=== PATIENT | male | born 1995 | race Native Hawaiian/Other Pacific Islander ===

== ENCOUNTER 2024-01-25 11:10 | Emergency (ER) | payer OTHER ==
[2024-01-25 11:26] VITALS: TEMP 98.1
[2024-01-25 12:00] LABS: Absolute Neutrophil Ct (ANC) 3.72 x10^3/uL (1.4-6.9); BASOPHIL % 0.2 % (0.0-0.4); Basophil (Absolute #) 0.01 x10^3/uL (0-0.4); Eosinophil % 0.9 % (0.00-5.0); Eosinophil (Absolute #) 0.05 x10^3/uL (0-0.5); Hematocrit 44.4 % (42-50); Hemoglobin 15.1 g/dL (12.5-18.0); IMMATURE GRAN # 0.02 x10^3u/L (0.00-0.03); IMMATURE GRAN % 0.4 % (0.00-0.4); Lymphocytes % 26.3 % (24.0-44.0); Mean Cell Volume 94.1 fL (78-100); Mean Platelet Volume 10.2 fL (7.5-11.0); Monocyte (Absolute #) 0.41 x10^3/uL (0.0-1.3); Monocytes % 7.2 % (0.0-12.0); Platelet Count 261 x10^3/uL (150-450); Red Blood Count 4.72 x10^6/uL (4.1-5.6); Red Cell Distribution Width 12.1 % (11.5-14.0); White Blood Count 5.7 x10^3/uL (4.0-10.5)
[2024-01-25] MEDS ORDERED: Sodium Chloride 0.9% 1000 ML 0 ML ONE (12:05)
[2024-01-25] MEDS ORDERED: ANTIVERT 25 MG ONE (12:05)
[2024-01-25 12:06] LABS: ALBUMIN 4.5 g/dL (3.5-5.0); ALKALINE PHOSPHATASE 75 U/L (38-126); ANION GAP 13.4 MEQ/L (5-15); BLOOD UREA NITROGEN 14 mg/dL (9-20); CHLORIDE 103 mmol/L (98-107); Calcium 9.7 mg/dL (8.4-10.2); Carbon Dioxide 24 mmol/L (22-30); Creatinine 1 0.95 mg/dL (0.66-1.25); EST GLOMERULAR FILTRATION RATE 110.4 ML/MIN; ETHYL ALCOHOL < 10 mg/dL (0-10); Glucose 111 mg/dL (74-106); MAGNESIUM 1.9 mg/dL (1.6-2.3); Potassium 3.9 mmol/L (3.5-5.1); SGOT/AST 35 U/L (17-59); SGPT/ALT 51 U/L (0-50); SODIUM 137 mmol/L (135-145); Total Protein 8.6 g/dL (6.3-8.2)
[2024-01-25] MEDS: ANTIVERT 25 MG PO ONE (12:06)
[2024-01-25 12:07] LABS: Appearance Clear (Clear); Bilirubin Negative (Negative); Blood Negative (Negative); Glucose, Urine Negative (Negative); Ketones Negative (Negative); Leukocyte Esterase Negative (Negative); Nitrite Negative (Negative); Protein,Urine Dip Negative (Negative); Specific Gravity 1.015 (1.005-1.030); Urobilinogen 0.2 mg/dL (0.2)
[2024-01-25 12:15] LABS: Bacteria None Seen /HPF (None Seen); Epithelial Cells None Seen /HPF (None Seen); Hyaline Casts NONE SEEN /LPF (0-2); RBC 0-2 /HPF (0-5); WBC 0-2 /HPF (0-5)
[2024-01-25 12:16] LABS: ADD URINE CULTURE? NO (NO)
[2024-01-25] MEDS: Sodium Chloride 0.9% 1000 ML 1,000 ML IV STA (12:16)
--- NOTE | 2024-01-25 12:20 | XRAY ---
Indication: Dizziness. Comparison: September 13, 2022 Portable chest again demonstrates normal heart, lungs, and bony thorax.
--- NOTE | 2024-01-25 12:20 | XRAY ---
Indication: Dizziness. Multiple contiguous axial images obtained through the head without contrast. Comparison: None Normal appearing brain parenchyma, ventricles, and bony calvarium. Partially visualized 2 cm right maxillary sinus polyp/retention cyst. Remaining visualized paranasal sinuses and mastoid air cells clear. Impression: Partially visualized right maxillary sinus polyp/retention cyst. Remaining CT head without contrast exam is normal.
[2024-01-25 12:23] LABS: Amphetamine,Urine NEGATIVE (NEGATIVE); Barbiturate,Urine NEGATIVE (NEGATIVE); Benzodiazepine,Urine NEGATIVE (NEGATIVE); Cocaine,Urine NEGATIVE (NEGATIVE); Methadone,Urine NEGATIVE (NEGATIVE); Opiate,Urine NEGATIVE (NEGATIVE); PCP,Urine NEGATIVE (NEGATIVE); THC,Urine NEGATIVE (NEGATIVE)
[2024-01-25 13:06] VITALS: BP 119/89; PULSE 52; RESP 19; O2SAT 100
--- NOTE | 2024-01-25 13:24 | ERPHSYRPT ---
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 Patient reports he was driving earlier and started feeling everything was spinning, lasted for few minutes and improved. He had 2 more episodes again and does feel as if he is going to pass out. Denies any palpitations or pounding of heart. Patient denies any focal numbness tingling or weakness. He does report feeling off today. Denies any visual disturbance or difficulty speech. Patient reports his symptoms are better but not completely resolved. Feels fatigued and tired. Denies associated nausea or vomiting. Allergies/Adverse Reactions: No Known Drug Allergies Allergy (Unverified 01/25/24 11:18) Home Medications: No Reportable Medications [No Reported Medications] 01/25/24 [History] Hx Tetanus, Diphtheria Vaccination/Date Given: Yes Hx Influenza Vaccination/Date Given: Yes Hx Pneumococcal Vaccination/Date Given: No Immunizations Up to Date: No Travel Risk - International Travel Have you traveled outside of the country in past 3 weeks: No - Emerging Infectious Disease Are you exhibiting symptoms associated with any current EIDs: No - Review of Systems Constitutional: Fatigue Eyes: No Symptoms Ears, Nose, & Throat: No Symptoms Respiratory: No Symptoms Cardiac: No Symptoms Abdominal/Gastrointestinal: No Symptoms Genitourinary Symptoms: No Symptoms Musculoskeletal: No Symptoms Skin: No Symptoms Neurological: Dizziness Psychological: No Symptoms Endocrine: No Symptoms Hematologic/Lymphatic: No Symptoms - Past Medical History Pertinent Past Medical History: No - Past Surgical History Past Surgical History: Yes Gastrointestinal: Appendectomy - Social History Smoking Status: Light tobacco smoker Exposure to second hand smoke: Yes Drug Use: none - Nursing Vital Signs Nursing Vital Signs: Initial Vital Signs Pulse Rate 51 L 01/25/24 11:18 Blood Pressure 143/96 01/25/24 11:18 O2 Sat by Pulse Oximetry 100 01/25/24 11:18 Pain Scale Pain Intensity 0 - Physical Exam General Appearance: no apparent distress, alert Eye Exam: PERRL/EOMI Ears, Nose, Throat Exam: normal ENT inspection Neck Exam: normal inspection, non-tender, supple, full range of motion Respiratory Exam: normal breath sounds, lungs clear Cardiovascular Exam: normal heart sounds, bradycardia Gastrointestinal/Abdomen Exam: soft, normal bowel sounds, No tenderness Extremity Exam: normal inspection, normal range of motion Neurologic Exam: alert, oriented x 3, cooperative, 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, normal mood/affect, nml cerebellar function, nml station & gait, sensation nml, No motor deficits Skin Exam: normal color SpO2 Interpretation: normal SpO2: 100 O2 Delivery: Room Air - Course EKG Interpreted by Me: RATE (49), Sinus Frank, Left Baxter Deviation, NORMAL INTERVALS, Non-specific ST Changes Ordered Tests: Active Orders 24 hr Category Date Time Status AMA [Release AMA] OM.NOW Care 01/25/24 13:26 Completed Machining Technician STAT Care 01/25/24 11:53 Completed EKG-ER Only STAT Care 01/25/24 11:53 Completed Orthostatic Vital Signs STAT Care 01/25/24 11:53 Completed CHEST 1 VIEW (PORTABLE) Stat Exams 01/25/24 11:53 Completed HEAD WITHOUT CONTRAST [CT] Stat Exams 01/25/24 11:53 Completed CBC W DIFF Stat Lab 01/25/24 11:35 Completed CMP Stat Lab 01/25/24 11:35 Completed ETHYL ALCOHOL Stat Lab 01/25/24 11:35 Completed Lactic Acid Stat Lab 01/25/24 11:53 Completed MAGNESIUM Stat Lab 01/25/24 11:35 Completed TROPONIN Q4H Lab 01/25/24 11:35 Completed TROPONIN Q4H Lab 01/25/24 16:00 Ordered TROPONIN Q4H Lab 01/25/24 20:00 Ordered UA W/RFX UR CULTURE Stat Lab 01/25/24 11:56 Completed Urine Triage Profile Stat Lab 01/25/24 11:56 Completed Medication Summary Discontinued Medications Generic Name Dose Route Start Last Admin Trade Name Freq PRN Reason Stop Dose Admin Sodium Chloride 1,000 mls @ 999 mls/hr 01/25/24 11:53 01/25/24 12:16 Sodium Chloride 0.9% 1000 Ml IV 01/25/24 12:53 Not Given .Q1H1M STA Sodium Chloride Confirm 01/25/24 12:05 Sodium Chloride 0.9% 1000 Ml Administered 01/25/24 12:06 Dose 1,000 mls @ ud .ROUTE .[facility] Meclizine HCl 25 mg 01/25/24 11:53 01/25/24 12:06 Meclizine Hcl 25 Mg Tablet PO 01/25/24 11:54 25 mg STAT ONE Administration Meclizine HCl Confirm 01/25/24 12:05 Meclizine Hcl 25 Mg Tablet Administered 01/25/24 12:06 Dose 25 mg .ROUTE .[facility] Lab/Rad Data: Laboratory Result Diagrams 01/25/24 11:35 01/25/24 11:35 Laboratory Results 01/25/24 01/25/24 01/25/24 Range/Units 11:56 11:56 11:53 WBC (4.0-10.5) x10^3/uL RBC (4.1-5.6) x10^6/uL Hgb (12.5-18.0) g/dL Hct (42-50) % MCV (78-100) fL MCH (26-32) pg MCHC (32-36) g/dL RDW (11.5-14.0) % Plt Count (150-450) x10^3/uL MPV (7.5-11.0) fL Gran % (36.0-66.0) % Immature Gran % (Auto) (0.00-0.4) % Nucleat RBC Rel Count (0.00-0.1) % Eos # (Auto) (0-0.5) x10^3/uL Immature Gran # (Auto) (0.00-0.03) x10^3u/L Absolute Lymphs (auto) (1.0-4.6) x10^3/uL Absolute Monos (auto) (0.0-1.3) x10^3/uL Absolute Nucleated RBC (0.00-0.01) x10^3u/L Lymphocytes % (24.0-44.0) % Monocytes % (0.0-12.0) % Eosinophils % (0.00-5.0) % Basophils % (0.0-0.4) % Absolute Granulocytes (1.4-6.9) x10^3/uL Basophils # (0-0.4) x10^3/uL Sodium (135-145) mmol/L Potassium (3.5-5.1) mmol/L Chloride (98-107) mmol/L Carbon Dioxide (22-30) mmol/L Anion Gap (5-15) MEQ/L BUN (9-20) mg/dL Creatinine (0.66-1.25) mg/dL Estimated GFR ML/MIN Glucose (74-106) mg/dL Lactic Acid 1.1 (0.4-2.0) Calcium (8.4-10.2) mg/dL Magnesium (1.6-2.3) mg/dL Total Bilirubin (0.2-1.3) mg/dL AST (17-59) U/L ALT (0-50) U/L Alkaline Phosphatase (38-126) U/L Troponin I (0.000-0.033) ng/mL Serum Total Protein (6.3-8.2) g/dL Albumin (3.5-5.0) g/dL Urine Color Yellow (Yellow) Urine Appearance Clear (Clear) Urine pH 7.0 (4.6-8.0) Ur Specific Perry 1.015 (1.005-1.030) Urine Protein Negative (Negative) Urine Glucose (UA) Negative (Negative) mg/dL Urine Ketones Negative (Negative) Urine Blood Negative (Negative) Urine Nitrite Negative (Negative) Urine Bilirubin Negative (Negative) Urine Urobilinogen 0.2 (0.2) mg/dL Ur Leukocyte Esterase Negative (Negative) U Hyaline Cast (Auto) NONE SEEN (0-2) /LPF Urine Microscopic RBC 0-2 (0-5) /HPF Urine Microscopic WBC 0-2 (0-5) /HPF Ur Epithelial Cells None Seen (None Seen) /HPF Urine Bacteria None Seen (None Seen) /HPF Urine Culture Reflexed NO (NO) Urine Opiates Level NEGATIVE (NEGATIVE) Ur Methadone NEGATIVE (NEGATIVE) Urine Barbiturates NEGATIVE (NEGATIVE) Ur Phencyclidine (PCP) NEGATIVE (NEGATIVE) Urine Amphetamine NEGATIVE (NEGATIVE) U Benzodiazepine Level NEGATIVE (NEGATIVE) Urine Cocaine NEGATIVE (NEGATIVE) Urine Marijuana (THC) NEGATIVE (NEGATIVE) Ethyl Alcohol (0-10) mg/dL 01/25/24 01/25/24 01/25/24 Range/Units 11:35 11:35 11:35 WBC 5.7 (4.0-10.5) x10^3/uL RBC 4.72 (4.1-5.6) x10^6/uL Hgb 15.1 (12.5-18.0) g/dL Hct 44.4 (42-50) % MCV 94.1 (78-100) fL MCH 32.0 (26-32) pg MCHC 34.0 (32-36) g/dL RDW 12.1 (11.5-14.0) % Plt Count 261 (150-450) x10^3/uL MPV 10.2 (7.5-11.0) fL Gran % 65.0 (36.0-66.0) % Immature Gran % (Auto) 0.4 (0.00-0.4) % Nucleat RBC Rel Count 0.0 (0.00-0.1) % Eos # (Auto) 0.05 (0-0.5) x10^3/uL Immature Gran # (Auto) 0.02 (0.00-0.03) x10^3u/L Absolute Lymphs (auto) 1.50 (1.0-4.6) x10^3/uL Absolute Monos (auto) 0.41 (0.0-1.3) x10^3/uL Absolute Nucleated RBC 0.00 (0.00-0.01) x10^3u/L Lymphocytes % 26.3 (24.0-44.0) % Monocytes % 7.2 (0.0-12.0) % Eosinophils % 0.9 (0.00-5.0) % Basophils % 0.2 (0.0-0.4) % Absolute Granulocytes 3.72 (1.4-6.9) x10^3/uL Basophils # 0.01 (0-0.4) x10^3/uL Sodium 137 (135-145) mmol/L Potassium 3.9 (3.5-5.1) mmol/L Chloride 103 (98-107) mmol/L Carbon Dioxide 24 (22-30) mmol/L Anion Gap 13.4 (5-15) MEQ/L BUN 14 (9-20) mg/dL Creatinine 0.95 (0.66-1.25) mg/dL Estimated GFR 110.4 ML/MIN Glucose 111 H (74-106) mg/dL Lactic Acid (0.4-2.0) Calcium 9.7 (8.4-10.2) mg/dL Magnesium 1.9 (1.6-2.3) mg/dL Total Bilirubin 0.60 (0.2-1.3) mg/dL AST 35 (17-59) U/L ALT 51 H (0-50) U/L Alkaline Phosphatase 75 (38-126) U/L Troponin I < 0.012 (0.000-0.033) ng/mL Serum Total Protein 8.6 H (6.3-8.2) g/dL Albumin 4.5 (3.5-5.0) g/dL Urine Color (Yellow) Urine Appearance (Clear) Urine pH (4.6-8.0) Ur Specific Perry (1.005-1.030) Urine Protein (Negative) Urine Glucose (UA) (Negative) mg/dL Urine Ketones (Negative) Urine Blood (Negative) Urine Nitrite (Negative) Urine Bilirubin (Negative) Urine Urobilinogen (0.2) mg/dL Ur Leukocyte Esterase (Negative) U Hyaline Cast (Auto) (0-2) /LPF Urine Microscopic RBC (0-5) /HPF Urine Microscopic WBC (0-5) /HPF Ur Epithelial Cells (None Seen) /HPF Urine Bacteria (None Seen) /HPF Urine Culture Reflexed (NO) Urine Opiates Level (NEGATIVE) Ur Methadone (NEGATIVE) Urine Barbiturates (NEGATIVE) Ur Phencyclidine (PCP) (NEGATIVE) Urine Amphetamine (NEGATIVE) U Benzodiazepine Level (NEGATIVE) Urine Cocaine (NEGATIVE) Urine Marijuana (THC) (NEGATIVE) Ethyl Alcohol < 10 (0-10) mg/dL - Progress Progress: re-examined Progress Note: 01/25/24 13:21 29-year-old is evaluated for intermittent dizziness since morning with feeling o f passing out. Multifactorial workup is done. Patient has a nonfocal neuroexam throughout her stay in the ER. EKG showed sinus bradycardia in 40s. Patient's heart rate while in the ER is dipping in low 40s. He is given meclizine which minimally helped but still have some symptoms. Workup showed normal white count, unremarkable chemistries, no UTI. Patient drinks alcohol/beer regularly but has a blood alcohol of less than 10 and negative drug screen. I have obtained CT head which is negative for any acute findings. Chest x-ray negative. With patient having symptoms and low heart rate this could be the reason are underlying heart block/arrhythmias which needs further evaluation and also possible MRI, recommended admission but patient does not want to stay in the hospital at all. Went over risk of leaving AGAINST MEDICAL ADVICE which would not only delay the diagnosis but worsening of morbidity and could be life- threatening situation but he still adamant about going home. He is advised to follow-up with his primary care and possible cardiology evaluation. Discussed signs symptoms of worsening needing return to ER which he seems understanding. Patient walked out of the ER on his own without assistance. Patient is not confused or altered at all. Counseled pt/family regarding: lab results, diagnosis, need for follow-up, rad results Medical Desision Making - Diagnostic Testing Diagnostic test were ordered, analyzed, and reviewed by me: Yes Radiological Interpretation: Reviewed by me - Departure Departure Disposition: AMA Clinical Impression: Dizziness, Bradycardia Condition: Stable Critical Care Time: No Referrals: DOCTOR,NO FAMILY [Primary Care Provider] - Follow up/PCP as directed PATRICIA DICK DO [ACTIVE STAFF] - Follow up with PCP 1 day Instructions: Vertigo (a Type of Dizziness) (DC), Bradycardia (DC) Additional Instructions: Drink plenty of fluids to keep yourself well-hydrated. Follow-up with primary care for reevaluation and may need referral for cardiology. Return to ER for any worsening.
== END 2024-01-25 13:26 | disposition left against medical advice (07) ==
LOC: ED 11:10
DX: R42 Dizziness and giddiness (principal); R00.1 Bradycardia, unspecified; R53.83 Other fatigue; Z72.0 Tobacco use
CPT/HCPCS: 36415; 70450; 71045; 80053; 80307; 81001; 82077; 83605; 83735; 84484; 85025; 93005; 93041; 99284; A9270-GY